=== PATIENT | female | born 1965 | race Caucasian/White ===

== ENCOUNTER 2017-01-24 12:30 | Inpatient (IN) ==
[2017-01-24] MEDS ORDERED: ACETAMINOPHEN 325 MG TABLET PO PRN (13:37)
[2017-01-24] MEDS ORDERED: ONDANSETRON 4 MG/2 ML VIAL IV PRN (13:37)
--- NOTE | 2017-01-24 14:07 | Family Practice History&Phys ---
Assessment and Plan (1) bronchitis with bronchospasm Status: Acute Assessment and plan: In view of the degree of symptoms with poor response to outpatient therapy, will admit for further evaluation and therapy. Will started on appropriate breathing treatments, steroids, and respiratory treatments. (2) type 2 diabetes mellitus Status: Chronic Assessment and plan: Has been diet-controlled (3) hereditary clotting deficiency Status: Chronic Assessment and plan: Patient is on chronic anticoagulant therapy. (4) history of pulmonary embolus Status: Chronic Assessment and plan: Patient is on chronic, anticoagulation (5) hypertension Status: Chronic Assessment and plan: Stable on present medications (6) Lupus erythematosus Status: Chronic Assessment and plan: Stable at present History of Present Illness Chief complaint: cough and shortness of breath History of present illness: Ms. Tobin is a 51 year old female Patient is a 51-year-old white female complaining of 3-4 week history of nonproductive cough wheezing and shortness of breath. Patient states that she has progressively got worse. States she is very weak at present. I saw patient in clinic last week patient was noted to have moderate wheezing in the bases bilaterally. Placed her on several medications but patient states that she is not improved. Patient states that she has dyspnea with lying down and with activity. She was seen this a.m. and noted to have decreased breath sounds with wheezing and bases bilaterally. In view of the degree of symptoms will admit for further evaluation and therapy. Home Medications Medication Instructions Recorded Confirmed Type Losartan Potassium 50 mg PO DAILY 05/24/16 01/04/17 History Oxycodone HCl/Acetaminophen 1 each PO BID 05/24/16 01/04/17 History [Percocet 10-325 mg Tablet] Sertraline [Zoloft] 100 mg PO DAILY 05/24/16 01/04/17 History Warfarin [Coumadin] 5 mg PO SUMOWEFR 05/24/16 01/04/17 History Warfarin [Coumadin] 7.5 mg PO TUTHSA 05/24/16 01/04/17 History cloNIDine HCl [Clonidine HCl] 0.1 mg PO BID 05/24/16 01/04/17 History Allergies Allergy/AdvReac Type Severity Reaction Status Date / Time morphine Allergy HIVES Verified 05/24/16 18:38 nifedipine [From Procardia] Allergy Hypertensio Verified 05/24/16 18:38 n Medical,Surgical,& Family Hx - Medical History Cardio: History of: Hypertension Rheumatology: History of;: Rheumatoid Arthritis, Systemic Lupus Erythematosus Musculoskeletal: History of: Musculoskeletal Problems (chronic pain) Hematology: History of: Bleeding Problems (factor 5) - Surgical History Abdominal Surgeries: Surgical HX of: Cholecystectomy Reproductive Surgeries: Surgical HX of;: Hysterectomy Orthopedic Surgeries: Surgical HX of;: Orthopedic Surgery (arthroscopic surgery left knee), Spinal Surgery - Family History Family History: Reports;: Family Diabetes, Family Heart Disease, Family Hypertension, Family Stroke - Social History Smoking Status: Never smoker Frequency of Alcohol Use: None Type of Drug Use: None Marital Status: Single Lives With:: Alone Functional capacity: independent ambulation Exam - Constitutional General appearance: mild distress - Head Head exam: Present: normal inspection - Eye Pupils: Present: NASEEM - ENT ENT exam: Present: normal exam - Neck Neck exam: Present: normal inspection - Respiratory Respiratory exam: Present: decreased breath sounds, wheezes - Cardiovascular Cardiovascular exam: Present: regular rate and rhythm - GI/Abdominal GI/Abdominal exam: Present: normal bowel sounds, soft - Extremities Exam Extremities exam: Present: normal inspection - Back Exam Back exam: Present: normal inspection - Neurological Exam Neurological exam: Present: alert, oriented X3 - Psychiatric Psychiatric exam: Present: normal affect - Skin Skin exam: Present: normal color
[2017-01-24] MEDS ORDERED: methylPREDNISolone SOD SUC 40 MG/1 ML VIAL IM SCH (14:30)
[2017-01-24] MEDS: ALBUTEROL/IPRATROPIUM 3 ML NEB RESP TX SCH ×2 (15:33→20:05)
--- NOTE | 2017-01-24 15:58 | XRay Report ---
Exam: Chest 2 views Date: January 24, 2017 at 3:44 PM Comparison: None Reason: Shortness of breath Findings: The cardiac silhouette is enlarged, and the patient is status post sternotomy. Spinal neurostimulator leads are seen at the mid thoracic spine. There is also mild elevation of the right hemidiaphragm. The interstitial markings are slightly prominent bilaterally, which could reflect mild pulmonary edema. No pneumothorax is identified, but there is mild left pleural fluid. No acute osseous process is seen. Impression: 1. Cardiomegaly. 2. Possible mild pulmonary edema. There is also mild left pleural fluid. PROCEDURE INTERPRETED AT [facility] DEPARTMENT OF RADIOLOGY Final Report Signed by: Dr. Troy Chau
[2017-01-24] MEDS: methylPREDNISolone SOD SUC 40 MG/1 ML VIAL IV SCH (16:12)
[2017-01-24] MEDS: DEXTROSE 5% NACL 0.45% 1,000 ML IV SCH (16:13)
[2017-01-24] MEDS: LEVOFLOXACIN INJ 500 MG in PREMIX 1 EACH IV SCH (16:13)
[2017-01-24] MEDS: SERTRALINE 100 MG TABLET PO SCH (16:18)
--- NOTE | 2017-01-24 16:42 | Pulmonology Consult Note ---
Assessment and Plan (1) bronchitis with bronchospasm Status: Acute Assessment and plan: Patient comes in coughing and wheezing. She may also has some chronic sinus disease. Will get a CT of her sinuses. Current Visit: Yes (2) type 2 diabetes mellitus Status: Chronic Assessment and plan: We will continue to watch her glucoses. Current Visit: Yes (3) hereditary clotting deficiency Status: Chronic Assessment and plan: She chronically requires anticoagulation. Current Visit: Yes (4) history of pulmonary embolus Status: Chronic Assessment and plan: She has severe pulmonary emboli in the past and required a pulmonary thromboembolectomy. Current Visit: Yes (5) hypertension Status: Chronic Assessment and plan: We will continue to monitor her blood pressure. Current Visit: Yes (6) Lupus erythematosus Status: Chronic Assessment and plan: Her lupus has been under reasonable control. Current Visit: Yes History of Present Illness Chief complaint: Shortness of breath History of present illness: Ms. Tobin is a 51 year old white female that was admitted today because of persistent coughing and shortness of breath. She states that off and on since July she has had bouts of sinus congestion and bronchitis. She says she will get better then worse again. In December she had a bad nosebleed and did have a lot of sinus stuffiness then. She says she has been coughing and wheezing a little bit of a little more short of breath. She was admitted for IV medications. She has a long history of having a clotting disorder and possible lupus. She had recurrent pulmonary emboli and she went to [place] to have a pulmonary thromboembolectomy. Her breathing has done well since then. She has chronically been on anticoagulation. Home Medications Medication Instructions Recorded Confirmed Type Losartan Potassium 50 mg PO BEDTIME 05/24/16 01/24/17 History Oxycodone HCl/Acetaminophen 1 each PO BID 05/24/16 01/24/17 History [Percocet 10-325 mg Tablet] Sertraline [Zoloft] 100 mg PO BEDTIME 05/24/16 01/24/17 History Warfarin [Coumadin] 5 mg PO SUMOWEFR 05/24/16 01/24/17 History Warfarin [Coumadin] 7.5 mg PO TUTHSA 05/24/16 01/24/17 History cloNIDine HCl [Clonidine HCl] 0.1 mg PO TID 05/24/16 01/24/17 History Omeprazole [Prilosec] 20 mg PO BEDTIME 01/24/17 01/24/17 History Zolpidem [Ambien] 10 mg PO BEDTIME 01/24/17 01/24/17 History Allergies Allergy/AdvReac Type Severity Reaction Status Date / Time morphine Allergy HIVES Verified 05/24/16 18:38 nifedipine [From Procardia] Allergy Hypertensio Verified 05/24/16 18:38 n - Constitutional Constitutional: Absent: chills, fever(s), weakness, weight loss - EENT Eyes: Absent: loss of vision Ears: Absent: decreased hearing Nose, mouth and throat: Present: nasal congestion, sinus pressure. Absent: dysphagia, headache(s) - Cardiovascular Cardiovascular: Present: dyspnea on exertion. Absent: chest pain at rest, edema , orthopnea, palpitations, PND - Respiratory Respiratory: Present: cough, hemoptysis, wheezing. Absent: pain on inspiration , change in phlegm color - Gastrointestinal Gastrointestinal: Absent: abdominal pain, change in bowel habits, dysphagia, nausea, vomiting - Genitourinary Genitourinary: Absent: difficulty urinating, dysuria, hematuria, urinary frequency - Musculoskeletal Musculoskeletal: Present: arthralgias, back pain - Neurological Neurological: Absent: abnormal speech, focal weakness, paresthesias - Psychiatric Psychiatric: Absent: anxiety Exam (Pulmonay) H&P - Constitutional Vitals: Period Temp Pulse Resp BP Sys/Liu Pulse Ox Last 24 Hr 97.5 F 70 18 159/79 92 General appearance: no acute distress, over weight - Head Head exam: Present: normal inspection, normocephalic - Eye Eye exam: Present: EOMI. Absent: scleral icterus Pupils: Present: NASEEM - ENT ENT exam: Present: other (No sinus tenderness) - Neck Neck exam: Absent: lymphadenopathy, thyromegaly - Respiratory Respiratory exam: Present: wheezes (She has some very faint wheezing). Absent: accessory muscle use, rales - Cardiovascular Cardiovascular exam: Present: regular rate and rhythm. Absent: diastolic murmur , gallop, systolic murmur - GI/Abdominal GI/Abdominal exam: Present: normal bowel sounds, soft. Absent: organomegaly, tenderness - Extremities Exam Extremities exam: Absent: calf tenderness, edema - Neurological Exam Neurological exam: Present: alert, oriented X3, CN II-XII intact - Psychiatric Psychiatric exam: Present: normal affect, normal mood - Skin Skin exam: Present: warm, dry Medical,Surgical,& Family Hx - Medical History Cardio: History of: Hypertension Psychological: History of: Anxiety Disorders Rheumatology: History of;: Rheumatoid Arthritis, Systemic Lupus Erythematosus Respiratory: History of: Asthma, Bronchitis, Pulmonary Embolism Musculoskeletal: History of: Musculoskeletal Problems (chronic pain) Hematology: History of: Bleeding Problems (factor 5) - Surgical History Abdominal Surgeries: Surgical HX of: Cholecystectomy Reproductive Surgeries: Surgical HX of;: Hysterectomy Orthopedic Surgeries: Surgical HX of;: Orthopedic Surgery (arthroscopic surgery left knee), Spinal Surgery - Family History Family History: Reports;: Family Diabetes, Family Heart Disease, Family Hypertension, Family Stroke - Social History Smoking Status: Never smoker Frequency of Alcohol Use: None Type of Drug Use: None Results - Diagnostic Findings Procedure: Chest x-ray: image reviewed by me, report reviewed by me (Chest x- ray does not show any infiltrates.)
[2017-01-24 17:32] LABS: Basophils % 0.3 % (0.0-0.8); Eosinophils # 0.1 10*3/uL (0.0-0.87); Eosinophils % 1.4 % (0.00-10.9); Hematocrit 37.8 VOL% (35.7-47.0); Hemoglobin 11.6 GM/DL (12.0-16.0); Immature Granulocytes % 0.6 %; Immature Granulocytes Absolute 0.06 #; Lymphocytes % 10.5 % (21.3-54.2); Mean Corpuscular HGB Conc 30.7 GM/DL (32-36); Mean Corpuscular Hemoglobin 27 PG (27-34); Mean Corpuscular Volume 88.3 FL (87-102); Monocytes # 0.6 10*3/uL (0.11-0.8); Monocytes % 6.8 % (1.7-12.7); Neutrophils # 7.5 10*3/uL (1.4-7.4); Neutrophils % 80.4 % (38.7-73.9); Platelet Count 333 T/CUMM (130-400); Red Blood Count 4.28 MC/CUMM (3.8-5.5); Red Cell Distribution Width 14.7 % (9.3-17.3); White Blood Count 9.3 T/CUMM (4-12)
[2017-01-24 17:43] LABS: INR 3.3
[2017-01-24 17:47] LABS: PT Patient Result 37.2 SECS
[2017-01-24 18:04] LABS: Albumin 3.7 G/DL (3.4-5.0); Bilirubin,Total 0.4 MG/DL (0.2-1.0); Calcium 8.5 MG/DL (8.5-10.1); Total Protein 6.8 G/DL (6.4-8.3)
[2017-01-24 18:05] LABS: Osmolality,Calculated 283.1 MOS/KG (273-304); Potassium 3.9 MMOL/L (3.5-5.1)
[2017-01-24] MEDS: cloNIDine 0.1 MG TABLET PO SCH (21:27)
[2017-01-24] MEDS: DOCUSATE SODIUM 100 MG CAPSULE PO SCH (21:51)
[2017-01-24] MEDS: LOSARTAN 50 MG TABLET PO SCH (22:12)
[2017-01-25] MEDS: methylPREDNISolone SOD SUC 40 MG/1 ML VIAL IV SCH ×3 (00:14→16:07)
[2017-01-25] MEDS ORDERED: WARFARIN 5 MG TABLET PO ONE (00:30)
[2017-01-25] MEDS: ALBUTEROL/IPRATROPIUM 3 ML NEB RESP TX SCH ×7 (00:31→23:13)
[2017-01-25] MEDS: oxyCODONE/ACETAMINOPHEN 5-325 MG TABLET PO SCH ×3 (03:36→16:07)
[2017-01-25] MEDS: DEXTROSE 5% NACL 0.45% 1,000 ML IV SCH ×2 (03:36→16:16)
[2017-01-25 05:55] LABS: Hematocrit 37.7 VOL% (35.7-47.0); Hemoglobin 11.9 GM/DL (12.0-16.0); Immature Granulocytes % 1.1 %; Immature Granulocytes Absolute 0.14 #; Lymphocytes # 0.5 10*3/uL (1.4-4.0); Lymphocytes % 3.6 % (21.3-54.2); Mean Corpuscular HGB Conc 31.6 GM/DL (32-36); Mean Corpuscular Hemoglobin 28 PG (27-34); Mean Corpuscular Volume 87.3 FL (87-102); Mean Platelet Volume 9.8 FL (9.6-12.0); Monocytes # 0.2 10*3/uL (0.11-0.8); Monocytes % 1.6 % (1.7-12.7); Neutrophils # 12.1 10*3/uL (1.4-7.4); Neutrophils % 93.7 % (38.7-73.9); Platelet Count 327 T/CUMM (130-400); Red Blood Count 4.32 MC/CUMM (3.8-5.5); Red Cell Distribution Width 14.6 % (9.3-17.3); White Blood Count 12.9 T/CUMM (4-12)
[2017-01-25 06:11] LABS: INR 3.5
[2017-01-25 06:15] LABS: PT Patient Result 40.3 SECS
[2017-01-25 06:23] LABS: Calcium 8.6 MG/DL (8.5-10.1); Hypochromasia 1+; Lymphocytes 2 % (20-55); Osmolality,Calculated 287.3 MOS/KG (273-304); Platelet Estimate Adequate; Polychromasia Slight; Potassium 4.5 MMOL/L (3.5-5.1); Segmented Neutrophils 96 % (50-85); Total Cells Counted 100
[2017-01-25 06:25] LABS: Magnesium 2.2 MG/DL (1.8-2.4); Risk Ratio 2.58; VLDL CHOLESTEROL 11.4 MG/DL
--- NOTE | 2017-01-25 08:45 | CT Report ---
Exam: CT sinus w con Date: 01/25/2017 Reason: Cough, sinus infection Comparison: None Technique: Axial images of the paranasal sinuses were obtained without the use of contrast. Sagittal and coronal reformatted images were also acquired. Total DLP was 362 mGy*cm. Findings: Bony septum in the left maxillary sinus. No significant mucosal thickening in the paranasal sinuses. No air-fluid levels are identified. The nasal septum is midline in its position. No acute findings in the orbits or temporal bones. Impression: No paranasal sinus pathology identified. This CT exam was performed using one or more of the following dose reduction techniques: Automatic exposure control, adjustment of the MA and/or KV according to patient size, or use of iterative reconstruction technique. PROCEDURE INTERPRETED AT [facility] DEPARTMENT OF RADIOLOGY Final Report Signed by: Dr. Pita Temple
[2017-01-25] MEDS: PANTOPRAZOLE 40 MG TABLET PO SCH (09:58)
[2017-01-25] MEDS: cloNIDine 0.1 MG TABLET PO SCH ×2 (09:58→21:02)
[2017-01-25] MEDS: SERTRALINE 100 MG TABLET PO SCH ×2 (10:02→21:11)
[2017-01-25] MEDS: DOCUSATE SODIUM 100 MG CAPSULE PO SCH ×2 (10:03→21:02)
[2017-01-25 13:23] LABS: Apearance,Urine CLEAR (Clear); Bilirubin,Urine Negative (Negative); Blood, Urine Small mg/dL (Negative); Glucose,Urine (UA) Negative (Negative); Ketones,Urine Negative (Negative); Nitrite,Urine Negative (Negative); Protein,Urine Negative; Squamous Epithelial Cell,Urine Occasional /HPF (0-10); Urine Color Straw (Yellow); Urine Specific Gravity 1.024 (1.001-1.035); Urine Urobilinogen < 2.0 EU/DL (0.2-1.0)
--- NOTE | 2017-01-25 13:58 | Pulmonology Progress Note ---
Pulmonary - PN: Subj Interval history: Patient is a 51-year-old that has a clotting disorder and had previous pulmonary emboli. She says she has had blastomycosis in the past. She has had some rhinitis but lately has been coughing and wheezing and having trouble with shortness of breath. Her chest x-ray really does not show much. Her sinus CT is okay. She still says she is coughing and wheezing however. She seems to be tolerating treatment okay so far Exam (Progress Note) - Constitutional Vitals: Period Temp Pulse Resp BP Sys/Liu Pulse Ox Last 24 Hr 97.1 F-98.2 F 63-83 18-20 125-169/48-80 92-100 Exam: General appearance: no acute distress, over weight, she looks comfortable and in no acute distress. - Head Head exam: Present: normal inspection, normocephalic - Eye Eye exam: Present: EOMI. Absent: scleral icterus Pupils: Present: NASEEM - ENT ENT exam: Present: other (No sinus tenderness) - Neck Neck exam: Absent: lymphadenopathy, thyromegaly - Respiratory Respiratory exam: Present: She has fairly good breath sounds bilaterally is moving air okay with just some very minimal rhonchi. - Cardiovascular Cardiovascular exam: Present: regular rate and rhythm. Absent: diastolic murmur , gallop, systolic murmur - GI/Abdominal GI/Abdominal exam: Present: normal bowel sounds, soft. Absent: organomegaly, tenderness - Extremities Exam Extremities exam: Absent: calf tenderness, edema - Neurological Exam Neurological exam: Present: alert, oriented X3, CN II-XII intact - Psychiatric Psychiatric exam: Present: normal affect, normal mood - Skin Skin exam: Present: warm, dry Results - Labs CBC & BMP: 01/25/17 05:43 01/25/17 05:43 - Diagnostic Findings Procedure: CT: report reviewed by me (CT of the sinuses are negative.) Assessment and Plan (1) bronchitis with bronchospasm Status: Acute Assessment and plan: Patient comes in coughing and wheezing. Her chest x-ray has been clear and her CT of her sinuses is okay. She is worried that she has something going on in her lungs. Will plan a bronchoscope and clear airways and get cultures. Current Visit: Yes (2) type 2 diabetes mellitus Status: Chronic Assessment and plan: We will continue to watch her glucoses. Current Visit: Yes (3) hereditary clotting deficiency Status: Chronic Assessment and plan: She chronically requires anticoagulation. Current Visit: Yes (4) history of pulmonary embolus Status: Chronic Assessment and plan: She has severe pulmonary emboli in the past and required a pulmonary thromboembolectomy. She has done well on anticoagulation. Current Visit: Yes (5) hypertension Status: Chronic Assessment and plan: We will continue to monitor her blood pressure. Current Visit: Yes (6) Lupus erythematosus Status: Chronic Assessment and plan: Her lupus has been under reasonable control. Current Visit: Yes
--- NOTE | 2017-01-25 14:08 | Family Practice Progress Note ---
Family Practice - PN: Subj Interval history: Patient states she feels slightly better but is still having frequent cough. Her chest x-ray is unremarkable and sinus CT was normal. Her a.m. labs revealed an INR of 3.5 which is excessive. I have held her Coumadin dosage until back in a therapeutic range. Dr. Bond is planning on doing a bronchoscope. Patient still has some wheezing in bases bilaterally. We'll continue present treatment plan Exam (Progress Note) - Constitutional Vitals: Period Temp Pulse Resp BP Sys/Liu Pulse Ox Last 24 Hr 97.1 F-98.2 F 63-83 18-20 125-169/48-80 92-100 Results - Labs CBC & BMP: 01/25/17 05:43 01/25/17 05:43 Assessment and Plan (1) bronchitis with bronchospasm Status: Acute Assessment and plan: In view of the degree of symptoms with poor response to outpatient therapy, will admit for further evaluation and therapy. Will started on appropriate breathing treatments, steroids, and respiratory treatments. Current Visit: Yes (2) type 2 diabetes mellitus Status: Chronic Assessment and plan: Has been diet-controlled Current Visit: Yes (3) hereditary clotting deficiency Status: Chronic Assessment and plan: Patient is on chronic anticoagulant therapy. Current Visit: Yes (4) history of pulmonary embolus Status: Chronic Assessment and plan: Patient is on chronic, anticoagulation Current Visit: Yes (5) hypertension Status: Chronic Assessment and plan: Stable on present medications Current Visit: Yes (6) Lupus erythematosus Status: Chronic Assessment and plan: Stable at present Current Visit: Yes
[2017-01-25] MEDS: LEVOFLOXACIN INJ 500 MG in PREMIX 1 EACH IV SCH (16:07)
[2017-01-25] MEDS: LOSARTAN 50 MG TABLET PO SCH (21:02)
[2017-01-26] MEDS: methylPREDNISolone SOD SUC 40 MG/1 ML VIAL IV SCH ×3 (00:56→15:40)
[2017-01-26] MEDS: DEXTROSE 5% NACL 0.45% 1,000 ML IV SCH ×2 (01:00→18:32)
[2017-01-26] MEDS: oxyCODONE/ACETAMINOPHEN 5-325 MG TABLET PO SCH ×3 (01:59→20:40)
[2017-01-26] MEDS: ALBUTEROL/IPRATROPIUM 3 ML NEB RESP TX SCH ×6 (03:51→23:55)
[2017-01-26 04:59] LABS: Basophils % 0.1 % (0.0-0.8); Hematocrit 37.4 VOL% (35.7-47.0); Hemoglobin 11.7 GM/DL (12.0-16.0); Immature Granulocytes % 1.7 %; Immature Granulocytes Absolute 0.31 #; Lymphocytes # 0.6 10*3/uL (1.4-4.0); Mean Corpuscular HGB Conc 31.3 GM/DL (32-36); Mean Corpuscular Hemoglobin 28 PG (27-34); Mean Corpuscular Volume 88.6 FL (87-102); Mean Platelet Volume 9.6 FL (9.6-12.0); Monocytes # 0.7 10*3/uL (0.11-0.8); Monocytes % 3.6 % (1.7-12.7); Neutrophils # 16.6 10*3/uL (1.4-7.4); Neutrophils % 91.6 % (38.7-73.9); Platelet Count 362 T/CUMM (130-400); Red Blood Count 4.22 MC/CUMM (3.8-5.5); Red Cell Distribution Width 14.8 % (9.3-17.3); White Blood Count 18.1 T/CUMM (4-12)
[2017-01-26 05:24] LABS: Hypochromasia 1+; Lymphocytes 2 % (20-55); Microcytosis 1+; Platelet Estimate Normal; Segmented Neutrophils 97 % (50-85); Total Cells Counted 100
[2017-01-26 05:28] LABS: Calcium 8.8 MG/DL (8.5-10.1); Potassium 4.8 MMOL/L (3.5-5.1)
[2017-01-26 05:32] LABS: INR 3.7
[2017-01-26 05:34] LABS: PT Patient Result 42.5 SECS
[2017-01-26] MEDS ORDERED: PROMETHAZINE 25 MG/1 ML VIAL IM ONE (07:30)
[2017-01-26] MEDS ORDERED: MEPERIDINE 50 MG/1 ML VIAL IM ONE (07:30)
[2017-01-26] MEDS ORDERED: MIDAZOLAM 2 MG/2 ML VIAL IV ONE (08:00)
[2017-01-26] MEDS ORDERED: LIDOCAINE 4% TOP SOLN 50 ML BOTTLE RESP TX ONE (08:00)
[2017-01-26] MEDS ORDERED: LIDOCAINE 2% VISCOUS 100 ML BOTTLE SWISH/SPIT ONE (08:00)
[2017-01-26] MEDS ORDERED: LIDOCAINE 1% 20 ML VIAL MISC INJ ONE (08:00)
--- NOTE | 2017-01-26 08:04 | Family Practice Progress Note ---
Family Practice - PN: Subj Interval history: Patient feels better this a.m. states she rested better last p.m. .still has some wheezing in bases bilaterally. Patient scheduled for bronchoscopy this a.m.. Hopefully this will help significantly. Encourage patient increase activity Exam (Progress Note) - Constitutional Vitals: Period Temp Pulse Resp BP Sys/Liu Pulse Ox Last 24 Hr 97.0 F-98.3 F 63-78 18-22 131-169/70-78 92-100 Results - Labs CBC & BMP: 01/26/17 04:46 01/26/17 04:46 Assessment and Plan (1) bronchitis with bronchospasm Status: Acute Assessment and plan: In view of the degree of symptoms with poor response to outpatient therapy, will admit for further evaluation and therapy. Will started on appropriate breathing treatments, steroids, and respiratory treatments. Current Visit: Yes (2) type 2 diabetes mellitus Status: Chronic Assessment and plan: Has been diet-controlled Current Visit: Yes (3) hereditary clotting deficiency Status: Chronic Assessment and plan: Patient is on chronic anticoagulant therapy. Current Visit: Yes (4) history of pulmonary embolus Status: Chronic Assessment and plan: Patient is on chronic, anticoagulation Current Visit: Yes (5) hypertension Status: Chronic Assessment and plan: Stable on present medications Current Visit: Yes (6) Lupus erythematosus Status: Chronic Assessment and plan: Stable at present Current Visit: Yes
--- NOTE | 2017-01-26 08:52 | Pulmonology Progress Note ---
Pulmonary - PN: Subj Interval history: Patient is a 51-year-old that has a clotting disorder and had previous pulmonary emboli. She says she has had blastomycosis in the past. She has had some rhinitis but lately has been coughing and wheezing and having trouble with shortness of breath. Her chest x-ray really does not show much. Her sinus CT is okay. She still says she is coughing and wheezing however. She says she is breathing a little better today. We will go ahead with a therapeutic bronchoscopy today. Exam (Progress Note) - Constitutional Vitals: Period Temp Pulse Resp BP Sys/Liu Pulse Ox Last 24 Hr 97.0 F-98.3 F 63-91 12-22 131-191/70-151 92-100 Exam: General appearance: no acute distress, over weight, she looks comfortable and in no acute distress. - Head Head exam: Present: normal inspection, normocephalic - Eye Eye exam: Present: EOMI. Absent: scleral icterus Pupils: Present: NASEEM - ENT ENT exam: Present: other (No sinus tenderness) - Neck Neck exam: Absent: lymphadenopathy, thyromegaly - Respiratory Respiratory exam: Present: She has fairly good breath sounds bilaterally is moving air okay with just some very minimal rhonchi. Her cough is a little better today. - Cardiovascular Cardiovascular exam: Present: regular rate and rhythm. Absent: diastolic murmur , gallop, systolic murmur - GI/Abdominal GI/Abdominal exam: Present: normal bowel sounds, soft. Absent: organomegaly, tenderness - Extremities Exam Extremities exam: Absent: calf tenderness, edema - Neurological Exam Neurological exam: Present: alert, oriented X3, CN II-XII intact - Psychiatric Psychiatric exam: Present: normal affect, normal mood - Skin Skin exam: Present: warm, dry Results - Labs CBC & BMP: 01/26/17 04:46 01/26/17 04:46 Assessment and Plan (1) bronchitis with bronchospasm Status: Acute Assessment and plan: Patient comes in coughing and wheezing. Her chest x-ray has been clear and her CT of her sinuses is okay. She is worried that she has something going on in her lungs. Will plan a bronchoscope today and assess her airways. Current Visit: Yes (2) type 2 diabetes mellitus Status: Chronic Assessment and plan: We will continue to watch her glucoses. Her glucose is 197 this morning. Current Visit: Yes (3) hereditary clotting deficiency Status: Chronic Assessment and plan: She chronically requires anticoagulation. Current Visit: Yes (4) history of pulmonary embolus Status: Chronic Assessment and plan: She has severe pulmonary emboli in the past and required a pulmonary thromboembolectomy. She has done well on anticoagulation. Current Visit: Yes (5) hypertension Status: Chronic Assessment and plan: We will continue to monitor her blood pressure. Her blood pressure is on the high side a little. Current Visit: Yes (6) Lupus erythematosus Status: Chronic Assessment and plan: Her lupus has been under reasonable control. Current Visit: Yes
--- NOTE | 2017-01-26 08:55 | Operative Note ---
Date of procedure: 01/26/17 Pre-op diagnosis: Asthmatic bronchitis Post-op diagnosis: same Procedure: Patient is a 51-year-old that has had recurrent coughing and wheezing and a difficult time clearing up. A bronchoscope will be done to check her airways. Timeout was performed to identify the patient. The patient is in the bronchoscopy lab. Preop: Demerol 50 mg, Phenergan 25 mg IM Anesthesia: Versed 4 mg IVP, topical lidocaine. Procedure: The fiberoptic bronchoscope was passed transnasally through the vocal cords into the lungs. The bronchopulmonary segments were identified and specimens were obtained. Findings: There is some thick secretions in the hypopharynx that were cleared. The vocal cords close normally. The trachea has some irritation present and some thick secretions present. The right upper lobe, right middle lobe, and right lower lobe are open. The left upper lobe, left lower lobe, and lingula are open. There is considerable bronchitis and retained secretions present. The airways were irrigated with saline and washings were sent for culture. There are no endobronchial lesions seen. Once the specimens were obtained the procedure was stopped. She tolerated the procedure well without problems. Impression: Bronchitis with some retained secretions. Plan: We will continue treatment and await cultures. Anesthesia: conscious sedation Surgeon / Physician: Chung Bond Estimated blood loss: none Specimens: other (Washings were sent for culture) Condition: stable Disposition: floor Results - Labs CBC & BMP: 01/26/17 04:46 01/26/17 04:46 Discharge Plan - Discharge Medications No Action cloNIDine HCl [Clonidine HCl] 0.1 mg PO TID Warfarin [Coumadin] 5 mg PO SUMOWEFR Warfarin [Coumadin] 7.5 mg PO TUTHSA Sertraline [Zoloft] 100 mg PO BEDTIME Losartan Potassium 50 mg PO BEDTIME Oxycodone HCl/Acetaminophen [Percocet 10-325 mg Tablet] 1 each PO BID Zolpidem [Ambien] 10 mg PO BEDTIME Omeprazole [Prilosec] 20 mg PO BEDTIME - Follow Up or Referral - Forms/Instructions
[2017-01-26] MEDS ORDERED: MIDAZOLAM 2 MG/2 ML VIAL ONE (09:13)
[2017-01-26] MEDS: cefTRIAXone 1,000 MG in SODIUM CHLORIDE 0.9% 100 ML IV SCH (10:02)
[2017-01-26] MEDS: PANTOPRAZOLE 40 MG TABLET PO SCH (12:42)
[2017-01-26] MEDS: DOCUSATE SODIUM 100 MG CAPSULE PO SCH ×2 (12:42→20:40)
[2017-01-26] MEDS: cloNIDine 0.1 MG TABLET PO SCH ×2 (12:42→20:40)
[2017-01-26] MEDS: LEVOFLOXACIN INJ 500 MG in PREMIX 1 EACH IV SCH (15:42)
[2017-01-26] MEDS ORDERED: WARFARIN 5 MG TABLET PO SCH (18:00)
[2017-01-26] MEDS: SERTRALINE 100 MG TABLET PO SCH (20:40)
[2017-01-26] MEDS: LOSARTAN 50 MG TABLET PO SCH (20:40)
[2017-01-27] MEDS: methylPREDNISolone SOD SUC 40 MG/1 ML VIAL IV SCH ×4 (00:25→23:58)
[2017-01-27] MEDS: DEXTROSE 5% NACL 0.45% 1,000 ML IV SCH ×2 (01:27→11:31)
[2017-01-27] MEDS: ALBUTEROL/IPRATROPIUM 3 ML NEB RESP TX SCH ×5 (03:50→19:11)
[2017-01-27 05:38] LABS: Basophils % 0.1 % (0.0-0.8); Hematocrit 37.9 VOL% (35.7-47.0); Hemoglobin 11.6 GM/DL (12.0-16.0); Immature Granulocytes % 1.3 %; Lymphocytes # 1.3 10*3/uL (1.4-4.0); Lymphocytes % 8.3 % (21.3-54.2); Mean Corpuscular HGB Conc 30.6 GM/DL (32-36); Mean Corpuscular Hemoglobin 27 PG (27-34); Mean Corpuscular Volume 89.4 FL (87-102); Mean Platelet Volume 10.1 FL (9.6-12.0); Monocytes # 1.2 10*3/uL (0.11-0.8); Monocytes % 7.8 % (1.7-12.7); Neutrophils # 13.1 10*3/uL (1.4-7.4); Neutrophils % 82.5 % (38.7-73.9); Platelet Count 343 T/CUMM (130-400); Red Blood Count 4.24 MC/CUMM (3.8-5.5); Red Cell Distribution Width 15.2 % (9.3-17.3); White Blood Count 15.9 T/CUMM (4-12)
[2017-01-27 05:49] LABS: PT Patient Result 33.9 SECS
[2017-01-27 06:03] LABS: Potassium 4.6 MMOL/L (3.5-5.1)
--- NOTE | 2017-01-27 08:08 | Family Practice Progress Note ---
Exam (Progress Note) - Constitutional Vitals: Period Temp Pulse Resp BP Sys/Liu Pulse Ox Last 24 Hr 96.3 F-98.7 F 59-91 10-188 132-203/62-151 91-99 Results - Labs CBC & BMP: 01/27/17 04:26 01/27/17 04:26 Assessment and Plan (1) bronchitis with bronchospasm Status: Acute Assessment and plan: In view of the degree of symptoms with poor response to outpatient therapy, will admit for further evaluation and therapy. Will started on appropriate breathing treatments, steroids, and respiratory treatments. Current Visit: Yes (2) type 2 diabetes mellitus Status: Chronic Assessment and plan: Has been diet-controlled Current Visit: Yes (3) hereditary clotting deficiency Status: Chronic Assessment and plan: Patient is on chronic anticoagulant therapy. Current Visit: Yes (4) history of pulmonary embolus Status: Chronic Assessment and plan: Patient is on chronic, anticoagulation Current Visit: Yes (5) hypertension Status: Chronic Assessment and plan: Stable on present medications Current Visit: Yes (6) Lupus erythematosus Status: Chronic Assessment and plan: Stable at present Current Visit: Yes
--- NOTE | 2017-01-27 08:15 | Family Practice Progress Note ---
Family Practice - PN: Subj Interval history: Patient states that she generally feels some better today. Still has moderate amount of productive sputum with some wheezing but is definitely improved. Lung perkins are much improved this a.m.. Reviewed lab and other studies. We will continue present treatment plan Exam (Progress Note) - Constitutional Vitals: Period Temp Pulse Resp BP Sys/Liu Pulse Ox Last 24 Hr 96.3 F-98.7 F 59-91 10-188 132-203/62-151 91-99 Results - Labs CBC & BMP: 01/27/17 04:26 01/27/17 04:26 Assessment and Plan (1) bronchitis with bronchospasm Status: Acute Assessment and plan: In view of the degree of symptoms with poor response to outpatient therapy, will admit for further evaluation and therapy. Will started on appropriate breathing treatments, steroids, and respiratory treatments. Current Visit: Yes (2) type 2 diabetes mellitus Status: Chronic Assessment and plan: Has been diet-controlled Current Visit: Yes (3) hereditary clotting deficiency Status: Chronic Assessment and plan: Patient is on chronic anticoagulant therapy. Current Visit: Yes (4) history of pulmonary embolus Status: Chronic Assessment and plan: Patient is on chronic, anticoagulation Current Visit: Yes (5) hypertension Status: Chronic Assessment and plan: Stable on present medications Current Visit: Yes (6) Lupus erythematosus Status: Chronic Assessment and plan: Stable at present Current Visit: Yes
[2017-01-27] MEDS: PANTOPRAZOLE 40 MG TABLET PO SCH (09:15)
[2017-01-27] MEDS: cloNIDine 0.1 MG TABLET PO SCH ×2 (09:15→20:59)
[2017-01-27] MEDS: DOCUSATE SODIUM 100 MG CAPSULE PO SCH ×2 (09:15→20:58)
[2017-01-27] MEDS: oxyCODONE/ACETAMINOPHEN 5-325 MG TABLET PO SCH ×2 (09:15→20:58)
[2017-01-27] MEDS: cefTRIAXone 1,000 MG in SODIUM CHLORIDE 0.9% 100 ML IV SCH (09:16)
--- NOTE | 2017-01-27 10:09 | Pulmonology Progress Note ---
Pulmonary - PN: Subj Interval history: Patient is a 51-year-old that has a clotting disorder and had previous pulmonary emboli. She says she has had blastomycosis in the past. She has had some rhinitis but lately has been coughing and wheezing and having trouble with shortness of breath. Her chest x-ray really does not show much. Her sinus CT is okay. She did well yesterday with a therapeutic bronchoscopy. She feels like she had a good night and is breathing better this morning. She feels like her coughing and wheezing have improved. So far cultures are negative. Exam (Progress Note) - Constitutional Vitals: Period Temp Pulse Resp BP Sys/Liu Pulse Ox Last 24 Hr 96.3 F-98.7 F 59-85 16-188 132-189/62-88 91-99 Exam: General appearance: no acute distress, over weight, she looks comfortable and in no acute distress. She is sitting up and in no distress. - Head Head exam: Present: normal inspection, normocephalic - Eye Eye exam: Present: EOMI. Absent: scleral icterus Pupils: Present: NASEEM - ENT ENT exam: Present: other (No sinus tenderness) - Neck Neck exam: Absent: lymphadenopathy, thyromegaly - Respiratory Respiratory exam: Present: She has good breath sounds bilaterally and her lungs sound clear with less wheezing. - Cardiovascular Cardiovascular exam: Present: regular rate and rhythm. Absent: diastolic murmur , gallop, systolic murmur - GI/Abdominal GI/Abdominal exam: Present: normal bowel sounds, soft. Absent: organomegaly, tenderness - Extremities Exam Extremities exam: Absent: calf tenderness, edema - Neurological Exam Neurological exam: Present: alert, oriented X3, CN II-XII intact - Psychiatric Psychiatric exam: Present: normal affect, normal mood - Skin Skin exam: Present: warm, dry Results - Labs CBC & BMP: 01/27/17 04:26 01/27/17 04:26 Assessment and Plan (1) bronchitis with bronchospasm Status: Acute Assessment and plan: Patient comes in coughing and wheezing. Her chest x-ray has been clear and her CT of her sinuses is okay. Bronchoscopy did show some bronchitis and retained secretions. She is feeling better and her bronchitis is improving. Current Visit: Yes (2) type 2 diabetes mellitus Status: Chronic Assessment and plan: We will continue to watch her glucoses. Her glucose is 116 this morning. Current Visit: Yes (3) hereditary clotting deficiency Status: Chronic Assessment and plan: She chronically requires anticoagulation. Current Visit: Yes (4) history of pulmonary embolus Status: Chronic Assessment and plan: She has severe pulmonary emboli in the past and required a pulmonary thromboembolectomy. She has done well on anticoagulation. Today her INR is 3.0. Current Visit: Yes (5) hypertension Status: Chronic Assessment and plan: We will continue to monitor her blood pressure. Her blood pressure is better today. Current Visit: Yes (6) Lupus erythematosus Status: Chronic Assessment and plan: Her lupus has been under reasonable control. Current Visit: Yes
[2017-01-27] MEDS: LEVOFLOXACIN INJ 500 MG in PREMIX 1 EACH IV SCH (14:04)
[2017-01-27] MEDS: WARFARIN 7.5 MG TABLET PO SCH ×2 (17:56→20:56)
[2017-01-27] MEDS: SERTRALINE 100 MG TABLET PO SCH (20:58)
[2017-01-27] MEDS: LOSARTAN 50 MG TABLET PO SCH (20:59)
[2017-01-28] MEDS: ALBUTEROL/IPRATROPIUM 3 ML NEB RESP TX SCH ×7 (00:04→23:19)
[2017-01-28 06:36] LABS: INR 2.2
[2017-01-28 06:37] LABS: PT Patient Result 24.4 SECS
--- NOTE | 2017-01-28 08:21 | Family Practice Progress Note ---
Family Practice - PN: Subj Interval history: Patient was admitted with bronchitis with bronchospasm over the last 2-3 weeks prior to admission. She has had a slow but steady to therapy. Required therapeutic bronchoscopy with removal of large amount of mucus plugging. Patient continues to improve but is still having some cough and wheezing worse with ambulation. Patient lives alone and states it is hard for her to care for self at present. Her physical examination is otherwise unremarkable. We will continue present treatment plan hopefully can discharge soon. Exam (Progress Note) - Constitutional Vitals: Period Temp Pulse Resp BP Sys/Liu Pulse Ox Last 24 Hr 97.3 F-98.6 F 64-85 16-20 127-166/59-92 92-98 Results - Labs CBC & BMP: 01/27/17 04:26 01/27/17 04:26 Assessment and Plan (1) bronchitis with bronchospasm Status: Acute Current Visit: Yes (2) type 2 diabetes mellitus Status: Chronic Current Visit: Yes (3) hereditary clotting deficiency Status: Chronic Current Visit: Yes (4) history of pulmonary embolus Status: Chronic Current Visit: Yes (5) hypertension Status: Chronic Current Visit: Yes (6) Lupus erythematosus Status: Chronic Current Visit: Yes
--- NOTE | 2017-01-28 09:03 | Pulmonology Progress Note ---
Pulmonary - PN: Subj Interval history: Patient is a 51-year-old that has a clotting disorder and had previous pulmonary emboli. She says she has had blastomycosis in the past. She has had some rhinitis but lately has been coughing and wheezing and having trouble with shortness of breath. Her chest x-ray really does not show much. Her sinus CT is okay. She says she still having some mild coughing and wheezing but her cultures are negative and she is tolerating treatment fairly well. She looks like she is comfortable and feels like her breathing is better. Exam (Progress Note) - Constitutional Vitals: Period Temp Pulse Resp BP Sys/Liu Pulse Ox Last 24 Hr 97.3 F-98.6 F 64-84 16-20 127-166/59-92 92-98 Exam: General appearance: no acute distress, over weight, she looks comfortable and in no acute distress. She is sitting up and in no distress. - Head Head exam: Present: normal inspection, normocephalic - Eye Eye exam: Present: EOMI. Absent: scleral icterus Pupils: Present: NASEEM - ENT ENT exam: Present: other (No sinus tenderness) - Neck Neck exam: Absent: lymphadenopathy, thyromegaly - Respiratory Respiratory exam: Present: She has good breath sounds bilaterally and she is moving air fairly well. She has minimal rhonchi on forced expiration. - Cardiovascular Cardiovascular exam: Present: regular rate and rhythm. Absent: diastolic murmur , gallop, systolic murmur - GI/Abdominal GI/Abdominal exam: Present: normal bowel sounds, soft. Absent: organomegaly, tenderness - Extremities Exam Extremities exam: Absent: calf tenderness, edema - Neurological Exam Neurological exam: Present: alert, oriented X3, CN II-XII intact - Psychiatric Psychiatric exam: Present: normal affect, normal mood - Skin Skin exam: Present: warm, dry Results - Labs CBC & BMP: 01/27/17 04:26 01/27/17 04:26 Assessment and Plan (1) bronchitis with bronchospasm Status: Acute Assessment and plan: Patient comes in coughing and wheezing. Her chest x-ray has been clear and her CT of her sinuses is okay. Bronchoscopy did show some bronchitis and retained secretions. She is feeling better and her bronchitis is improving. She may have some asthmatic bronchitis and will continue with inhaled steroids and bronchodilators. She can probably go home on tapering steroids and antibiotics soon. Current Visit: Yes (2) type 2 diabetes mellitus Status: Chronic Assessment and plan: We will continue to watch her glucoses. Her glucose is 116. Current Visit: Yes (3) hereditary clotting deficiency Status: Chronic Assessment and plan: She chronically requires anticoagulation. Current Visit: Yes (4) history of pulmonary embolus Status: Chronic Assessment and plan: She has severe pulmonary emboli in the past and required a pulmonary thromboembolectomy. She has done well on anticoagulation. Today her INR is 2.2. Her Coumadin has been restarted. Current Visit: Yes (5) hypertension Status: Chronic Assessment and plan: We will continue to monitor her blood pressure. Her blood pressure is better today. She seems to be tolerating her medicines okay. Current Visit: Yes (6) Lupus erythematosus Status: Chronic Assessment and plan: Her lupus has been under reasonable control. Current Visit: Yes
[2017-01-28] MEDS: oxyCODONE/ACETAMINOPHEN 5-325 MG TABLET PO SCH ×2 (09:24→20:54)
[2017-01-28] MEDS: DOCUSATE SODIUM 100 MG CAPSULE PO SCH ×2 (09:25→20:54)
[2017-01-28] MEDS: PANTOPRAZOLE 40 MG TABLET PO SCH (09:25)
[2017-01-28] MEDS: cloNIDine 0.1 MG TABLET PO SCH (09:25)
[2017-01-28] MEDS: methylPREDNISolone SOD SUC 40 MG/1 ML VIAL IV SCH ×2 (09:26→15:03)
[2017-01-28] MEDS: BUDESONIDE/FORMOTEROL 160-4.5 INHALER 6 GM INH SCH ×2 (09:30→20:54)
[2017-01-28] MEDS: cefTRIAXone 1,000 MG in SODIUM CHLORIDE 0.9% 100 ML IV SCH (09:37)
[2017-01-28] MEDS: LEVOFLOXACIN INJ 500 MG in PREMIX 1 EACH IV SCH (15:03)
[2017-01-28] MEDS ORDERED: WARFARIN 5 MG TABLET PO SCH (18:00)
[2017-01-28] MEDS: LOSARTAN 50 MG TABLET PO SCH (20:54)
[2017-01-28] MEDS: SERTRALINE 100 MG TABLET PO SCH (20:55)
[2017-01-28] MEDS ORDERED: ZALEPLON 5 MG CAPSULE PO SCH (21:00)
[2017-01-29] MEDS: methylPREDNISolone SOD SUC 40 MG/1 ML VIAL IV SCH ×2 (00:25→08:13)
[2017-01-29] MEDS: ALBUTEROL/IPRATROPIUM 3 ML NEB RESP TX SCH ×2 (03:25→07:15)
[2017-01-29 05:10] LABS: Basophils % 0.1 % (0.0-0.8); Hematocrit 40.1 VOL% (35.7-47.0); Hemoglobin 12.3 GM/DL (12.0-16.0); Immature Granulocytes % 2.2 %; Immature Granulocytes Absolute 0.31 #; Lymphocytes # 0.8 10*3/uL (1.4-4.0); Lymphocytes % 5.7 % (21.3-54.2); Mean Corpuscular HGB Conc 30.7 GM/DL (32-36); Mean Corpuscular Hemoglobin 27 PG (27-34); Mean Corpuscular Volume 88.9 FL (87-102); Mean Platelet Volume 10.1 FL (9.6-12.0); Monocytes # 0.8 10*3/uL (0.11-0.8); Monocytes % 5.2 % (1.7-12.7); Neutrophils # 12.4 10*3/uL (1.4-7.4); Neutrophils % 86.8 % (38.7-73.9); Platelet Count 312 T/CUMM (130-400); Red Blood Count 4.51 MC/CUMM (3.8-5.5); Red Cell Distribution Width 14.8 % (9.3-17.3); White Blood Count 14.3 T/CUMM (4-12)
[2017-01-29 05:20] LABS: INR 2.4
[2017-01-29 05:26] LABS: PT Patient Result 26.4 SECS
[2017-01-29 05:43] LABS: Calcium 8.5 MG/DL (8.5-10.1); Osmolality,Calculated 286.1 MOS/KG (273-304); Potassium 4.3 MMOL/L (3.5-5.1)
[2017-01-29 08:00] VITALS: BP 161/90
[2017-01-29] MEDS: PANTOPRAZOLE 40 MG TABLET PO SCH (08:12)
[2017-01-29] MEDS: DOCUSATE SODIUM 100 MG CAPSULE PO SCH (08:12)
[2017-01-29] MEDS: cloNIDine 0.1 MG TABLET PO SCH (08:13)
[2017-01-29] MEDS: oxyCODONE/ACETAMINOPHEN 5-325 MG TABLET PO SCH (08:14)
[2017-01-29] MEDS: cefTRIAXone 1,000 MG in SODIUM CHLORIDE 0.9% 100 ML IV SCH (08:15)
[2017-01-29] MEDS: BUDESONIDE/FORMOTEROL 160-4.5 INHALER 6 GM INH SCH (08:16)
--- NOTE | 2017-01-29 09:46 | Discharge Summary ---
Hospital Course - Hospital Course Hospital Course: Patient was admitted with bronchitis with bronchospasm over the last 2-3 weeks prior to admission. She has had a slow but steady response to therapy. Required therapeutic bronchoscopy with removal of large amount of mucus plugging. Patient continues to improve but is still having some cough and wheezing. Per Pulmonary consult patient is eager to go home and may be discharged on MDP and antibiotic to follow up in a few weeks. Her physical examination is otherwise unremarkable. She has also been prescribed Symbicort. WE will discharge today with meds as ordered and continue home meds. Specialty Discharge - Follow Up or Referrals Follow up with: Chung Bond MD [Physician] - Oscar Hernandez DO [Primary Care Provider] - 2 Weeks Discharge Plan - Discharge Data Disposition: Disch To Home/Self Care Condition at Discharge: Stable Discharge Diet: advance to your usual diet Activity: resume usual activities as tolerated Hygiene: no restrictions Weight Bearing at Discharge: full weight bearing Driving: no restrictions Contact your physician if you experience:: fever over 101, Shortness of breath - Discharge Medications New Budesonide/Formoterol 160-4.5 [Symbicort 160-4.5] 2 puff INH BID #1 inhaler Cefdinir [Omnicef] 300 mg PO BID #12 capsule cloNIDine TAB [Catapres Tab] 0.1 mg PO DAILY tablet cloNIDine TAB [Catapres Tab] 0.2 mg PO BEDTIME tablet methylPREDNISolone DOSEPAK [Medrol Dosepak] 4 mg PO DIRECTED #1 pack Warfarin [Coumadin] 5 mg PO [id number]@1800 tablet Continue cloNIDine HCl [Clonidine HCl] 0.1 mg PO TID Warfarin [Coumadin] 5 mg PO SUMOWEFR Warfarin [Coumadin] 7.5 mg PO TUTHSA Sertraline [Zoloft] 100 mg PO BEDTIME Losartan Potassium 50 mg PO BEDTIME Oxycodone HCl/Acetaminophen [Percocet 10-325 mg Tablet] 1 each PO BID Zolpidem [Ambien] 10 mg PO BEDTIME Omeprazole [Prilosec] 20 mg PO BEDTIME - Follow Up or Referral Follow Up: Oscar Hernandez DO [Primary Care Provider] - 2 Weeks Chung Bond MD [Physician] - - Forms/Instructions Exam - Constitutional Vitals: Period Temp Pulse Resp BP Sys/Liu Pulse Ox Last 24 Hr 97.1 F-98.2 F 21-94 16-22 134-198/67-91 84-100 Discharge Results Procedures and tests throughout hospitalization: Pending Orders 01/24/17 13:55 Sputum Culture and Gram Stain Stat 01/24/17 17:06 Blood Culture Stat 01/26/17 09:40 AFB Culture/Smears Routine Fungal Culture w/ Prep Routine 01/30/17 04:00 Prothrombin Time INR IN AM Labs on day of discharge: Labs from last 24 hours 01/29/17 01/29/17 01/29/17 03:44 03:44 03:44 WBC 14.3 H RBC 4.51 Hgb 12.3 Hct 40.1 MCV 88.9 MCH 27 MCHC 30.7 L RDW 14.8 Plt Count 312 MPV 10.1 Neut % (Auto) 86.8 H Lymph % (Auto) 5.7 L [place] % (Auto) 5.2 Eos % (Auto) 0.0 Baso % (Auto) 0.1 Neut # (Auto) 12.4 H Lymph # (Auto) 0.8 L [place] # (Auto) 0.8 Eos # (Auto) 0.0 Baso # (Auto) 0.0 Immature Gran % 2.2 Nucleated RBC % 0.0 Immature Gran # 0.31 Nucleated RBCs # 0.00 INR 2.4 PT Patient/Control Mix 26.4 Sodium 142 Potassium 4.3 Chloride 103 Carbon Dioxide 32 Anion Gap 11.3 BUN 16 Creatinine 0.80 GFR Calculation 122 BUN/Creatinine Ratio 20.00 Glucose 155 H Calculated Osmolality 286.1 Calcium 8.5 Preliminary micro results at discharge 01/24/17 17:06 Blood Culture - Preliminary Blood No growth at 3 days 01/24/17 17:06 Blood Culture - Preliminary Blood No growth at 3 days DS: Provider Date of admission: 01/24/17 15:23 Primary care physician: Oscar Hernandez DO Attending physician on admission: Oscar Hernandez DO Consults: 01/24/17 13:44 Consult to Physician [CONS] Routine Comment: Consulting Provider: Chung Bond When should Consulting Provider be notified: Now Person Notified: lyssa Date Notified: 01/24/17 Time Notified: 15:57 Discharging clinician: Laurent Lu DO
[2017-02-01] MEDS ORDERED: WARFARIN 7.5 MG TABLET PO SCH (18:00)
== END 2017-01-29 10:34 | disposition home or self-care (01) | DRG 202 ==
LOC: N.2E 15:23
PROVIDERS: ADMIT Family Medicine; ATTEND Family Medicine